=== PATIENT | female | born 1985 | race Caucasian/White ===

== ENCOUNTER 2024-07-02 18:06 | Outpatient (CLI) | payer BC, SELFPAY ==
[2024-07-06 07:18] LABS: HPV Source Cervix; HPV, High Risk by TMA Not Detected
== END 2024-07-02 18:07 | disposition home or self-care (01) ==
PROVIDERS: Visit Provider Physician Assistant
DX: N92.0 Excessive and frequent menstruation with regular cycle (principal); Z12.4 Encounter for screening for malignant neoplasm of cervix; Z11.51 Encounter for screening for human papillomavirus (HPV)
CPT/HCPCS: 87624; 87625; 88141; 88142

== ENCOUNTER 2024-07-10 07:57 | Outpatient (CLI) | payer BC, SELFPAY ==
--- NOTE | 2024-07-10 08:15 | CRLHL7_ITS ---
For Patients: As a result of the Century Cures Act, medical imaging exams and procedure reports are released immediately into your electronic medical record. You may view this report before your referring provider. If you have questions, please contact your health care provider. INDICATION: Heavy and Frequent Menstruation COMPARISON: none TECHNIQUE: 2D cagle scale and color Doppler images were acquired of the pelvis using a transabdominal and transvaginal approach. FINDINGS: Sonographic images demonstrate a normal size and smooth outer contour of the uterus. Uterus measures 10.4 cm in length by 3.8 cm in AP diameter by 5.3 cm in transverse dimension. The myometrium has a normal uniform echotexture. The endometrial lining measures 4.5 mm in composite thickness. Trace endometrial fluid noted. The right ovary measures 2.8 x 2.1 x 2.3 cm in size and the left ovary measures 2.6 x 2.0 x 2.1 cm. The ovaries demonstrate normal arterial and venous blood flow on color Doppler analysis. There are no suspicious fluid collections within the cul-de-sac. IMPRESSION: Endometrial thickness 4.5 millimeters. Trace amount of endometrial fluid. No evidence of polyp or uterine fibroid. Dictated by Dale Harrison MD @ 07/10/2024 9:32:04 AM (Electronically Signed)
== END 2024-07-10 07:58 | disposition home or self-care (01) ==
LOC: US 07:57
PROVIDERS: Visit Provider Physician Assistant
DX: N92.0 Excessive and frequent menstruation with regular cycle (principal); R93.89 Abnormal findings on diagnostic imaging of other specified body structures
CPT/HCPCS: 76830; 76856

== ENCOUNTER 2024-07-10 08:00 | Outpatient (CLI) | payer BC, SELFPAY | END 2024-07-10 08:01 | disposition home or self-care (01) | LOC: NFLDREF 07-17 23:49 | PROVIDERS: Visit Provider Physician Assistant | DX: Z13.6 Encounter for screening for cardiovascular disorders (principal); Z13.1 Encounter for screening for diabetes mellitus | CPT/HCPCS: 80061; 82947 ==